=== PATIENT | male | born 1955 | race American Indian/Alaskan Native ===

== ENCOUNTER 2017-06-21 12:40 | Emergency (ER) | payer MEDICARE, OTHER ==
[2017-06-21 12:46] VITALS: BMI 33.2
[2017-06-21 12:50] VITALS: O2SAT 95
--- NOTE | 2017-06-21 13:22 | C.PDOC ---
History Of Present Illness 61 y/o male presents to the ED for evaluation of lower abdominal pain for the past 1 month, worse in the last week. Patient states his pain worsens when he urinates, and in the morning upon waking up. Pt reports having previous surgery for inguinal hernia, but does not recall surgeon's name. He denies fever/chills, nausea, vomiting, diarrhea, changes in bowel habits, dysuria/ hematuria, flank pain, or testicular pain. Time Seen by Provider: 06/21/17 13:03 Chief Complaint (Nursing): Abdominal Pain History Per: Patient History/Exam Limitations: no limitations Onset/Duration Of Symptoms: Days (1 week) Current Symptoms Are (Timing): Still Present Severity: Mild Radiation Of Pain To:: None Quality Of Discomfort: "Pain" Associated Symptoms: denies: Fever, Chills, Nausea, Vomiting, Diarrhea, Loss Of Appetite, Back Pain, Chest Pain, Constipation, Urinary Symptoms Exacerbating Factors: None Alleviating Factors: None Additional History Per: Patient Past Medical History Reviewed: Historical Data, Nursing Documentation, Vital Signs Vital Signs: Last Vital Signs Temp 97.9 F 06/21/17 17:03 Pulse 83 06/21/17 17:03 Resp 20 06/21/17 17:03 BP 138/86 06/21/17 17:03 Pulse Ox 95 06/21/17 17:03 - Medical History PMH: COPD, HTN, Seizures (LAST SEIZURE AGE 6) Surgical History: Endoscopy - [facility] Procedures LAPAROSCOPIC INCISIONAL HERNIA REPAIR W GRAFT OR PROSTHESIS (03/28/15) LAPAROSCOPIC REPAIR OF INGUINAL HERNIA W GRAFT OR PROST, NOS (03/28/15) Family History: States: No Known Family Hx - Social History Hx Alcohol Use: No Hx Substance Use: No Review Of Systems Except As Marked, All Systems Reviewed And Found Negative. Constitutional: Negative for: Fever, Chills Cardiovascular: Negative for: Chest Pain, Palpitations Respiratory: Negative for: Cough, Shortness of Breath Gastrointestinal: Positive for: Abdominal Pain (lower). Negative for: Nausea, Vomiting, Diarrhea, Constipation Genitourinary: Negative for: Dysuria, Hematuria Musculoskeletal: Negative for: Back Pain Physical Exam - Physical Exam Appears: Well, Non-toxic, No Acute Distress Skin: Normal Color, Warm, Dry Eye(s): bilateral: Normal Inspection Oral Mucosa: Moist Neck: Supple Cardiovascular: Rhythm Regular Respiratory: Normal Breath Sounds, No Rales, No Rhonchi, No Wheezing Gastrointestinal/Abdominal: Bowel Sounds, Soft, Tenderness (epigastric, suprapubic TTP, (-) McBurney's, (-) Gould's), No Guarding, No Rebound, No Hernia (no palpable hernias (abdominal/inguinal/testicular)) Back: Normal Inspection, No CVA Tenderness Neurological/Psych: Oriented x3 ED Course And Treatment - Laboratory Results Result Diagrams: 06/21/17 13:42 06/21/17 13:42 O2 Sat by Pulse Oximetry: 95 (RA) Pulse Ox Interpretation: Normal - CT Scan/US Abd & pelvis CT Other Rad Studies (CT/US): Read By Radiologist, Radiology Report Reviewed CT/US Interpretation: PROCEDURE: CT Abdomen and Pelvis with contrast. HISTORY : SUPRAPUBIC, LLQ/RLQ PAIN. COMPARISON: None available. TECHNIQUE: Contrast dose: 100 cc Visipaque 320. Radiation dose: Total exam DLP = 1223.99 mGy-cm. This CT exam was performed using one or more of the following dose reduction techniques: Automated exposure control, adjustment of the mA and/or kV according to patient size, and/or use of iterative reconstruction technique. FINDINGS: LOWER THORAX: Partially imaged bronchiectasis, posterior right upper lobe. No visible consolidation, pleural effusion, or pneumothorax. Small hiatal hernia/ distal esophageal wall thickening. LIVER: Unremarkable. GALLBLADDER AND BILE DUCTS: Cholelithiasis. PANCREAS: Unremarkable. SPLEEN: Unremarkable. ADRENALS: Unremarkable. KIDNEYS AND URETERS: The kidneys enhance symmetrically. No hydronephrosis or obstructing calculus identified. VASCULATURE: No aortic aneurysm. BOWEL: Stomach is nondistended. Lack of oral contrast limits evaluation for bowel pathology. Bowel loops appear within normal limits of caliber without evidence of obstruction. APPENDIX: The appendix appears within normal limits of caliber. No secondary signs of acute appendicitis. PERITONEUM: No significant free fluid. No definite free air. LYMPH NODES: No bulky adenopathy identified. BLADDER: Urinary bladder wall thickening. REPRODUCTIVE: Unremarkable. BONES: Degenerative changes. OTHER FINDINGS: None. IMPRESSION: Urinary bladder wall thickening may be exaggerated by under distension. Recommend correlation with urinalysis. Cholelithiasis. Additional findings as above. Progress Note: Plan: Blood work, urinalysis, CT scan abd/pelvis ordered and reviewed. Patient given IV NS bolus, IV toradol. Reevaluation Time: 16:45 Reassessment Condition: Improved (On reassessment, patient is resting comfortably and states he feels better. He would like to be discharged home, and is requesting Tramadol which "has worked for the pain before". Blood work, UA, CT scan unremarkable. Patient instructed to follow up with PMD/clinic in 1- 2 days, and he understands he should return to ED if symptoms worsen.) Disposition Counseled Patient/Family Regarding: Studies Performed, Diagnosis, Need For Followup, Rx Given - Disposition Disposition: HOME/ ROUTINE Disposition Time: 16:45 Condition: STABLE Additional Instructions: FOLLOW UP WITH YOUR DOCTOR IN 1-2 DAYS USE MEDICATION NEEDED RETURN TO EMERGENCY ROOM IF SYMPTOMS WORSEN Prescriptions: traMADol [Ultram] 50 mg PO BID PRN #12 tab PRN Reason: pain Instructions: Abdominal Pain (ED) Forms: [employer] (Taiwanese) Print Language: GRENADIAN - POA Present On Arrival: None - Clinical Impression Clinical Impression: Abdominal pain - Scribe Statement The provider has reviewed the documentation as recorded by the Thomasibangelique Kendrick All medical record entries made by the Thomasibangelique were at my direction and personally dictated by me. I have reviewed the chart and agree that the record accurately reflects my personal performance of the history, physical exam, medical decision making, and the department course for this patient. I have also personally directed, reviewed, and agree with the discharge instructions and disposition.
[2017-06-21] MEDS ORDERED: Sodium Chloride 0.9% 500 ML IV ONE ×2 (13:29→14:11)
[2017-06-21 13:57] LABS: BASO % 0.6 % (0.0-2.0); EOS # 0.1 K/uL (0.0-0.7); EOS % 1.4 % (0.0-4.0); HEMATOCRIT 41.5 % (35.0-51.0); LYMPH # 2.2 K/uL (1.0-4.3); LYMPH % 37.9 % (20.0-40.0); MEAN CELL VOLUME 88.2 fL (80.0-94.0); MEAN CORPUSCULAR HEMOGLOBIN 29.1 pg (27.0-31.0); MEAN CORPUSCULAR HGB CONC 32.9 g/dL (33.0-37.0); MEAN PLATELET VOLUME 7.1 fL (7.2-11.7); MONO # 0.6 K/uL (0.0-0.8); MONO % 10.8 % (0.0-10.0); NRBC % 0.1 % (0.0-2.0); RED CELL DISTRIBUTION WIDTH 14.3 % (11.5-14.5); WHITE BLOOD COUNT 5.8 K/uL (4.8-10.8)
[2017-06-21 14:03] LABS: RBC URINE < 1 /hpf (0-3); URINE BILIRUBIN NEGATIVE (NEGATIVE); URINE BLOOD NEGATIVE (NEGATIVE); URINE COLOR Yellow (YELLOW); URINE GLUCOSE (UA) 1+ mg/dL (Normal); URINE KETONE NEGATIVE (NEGATIVE); URINE LEUKOCYTE ESTERASE NEG Leu/uL (Negative); URINE PROTEIN NEGATIVE (NEGATIVE); URINE UROBILINOGEN NORMAL mg/dL (0.2-1.0); WBC URINE 1 /hpf (0-5)
[2017-06-21 14:09] LABS: CHLORIDE 103 mmol/L (98-107)
[2017-06-21 14:10] LABS: POTASSIUM 3.7 mmol/L (3.6-5.2); SODIUM 138 mmol/L (132-148)
[2017-06-21 14:12] LABS: BILIRUBIN,TOTAL 0.5 mg/dL (0.2-1.3); CARBON DIOXIDE 24 mmol/L (22-30); GFR AFRICAN-AMERICAN > 60
[2017-06-21 14:13] LABS: ALB/GLOB RATIO 1.1 (1.0-2.1); ALKALINE PHOSPHATASE 60 U/L (38-126); ALT/SGPT 22 U/L (21-72); AST/SGOT 18 U/L (17-59); BLOOD UREA NITROGEN 11 mg/dL (9-20); CALCIUM 9.1 mg/dl (8.6-10.4); GLUCOSE,RANDOM 87 mg/dL (75-110); TOTAL PROTEIN 7.2 g/dL (6.3-8.3)
[2017-06-21] MEDS ORDERED: Iodixanol 320 MG/ML 100 ML BOTTLE IV ONE (15:28)
--- NOTE | 2017-06-21 16:31 | CT ---
PROCEDURE: CT Abdomen and Pelvis with contrast HISTORY: SUPRAPUBIC, LLQ/RLQ PAIN COMPARISON: None available. TECHNIQUE: Contrast dose: 100 cc Visipaque 320 Radiation dose: Total exam DLP = 1223.99 mGy-cm. This CT exam was performed using one or more of the following dose reduction techniques: Automated exposure control, adjustment of the mA and/or kV according to patient size, and/or use of iterative reconstruction technique. FINDINGS: LOWER THORAX: Partially imaged bronchiectasis, posterior right upper lobe. No visible consolidation, pleural effusion, or pneumothorax. Small hiatal hernia/ distal esophageal wall thickening. LIVER: Unremarkable. GALLBLADDER AND BILE DUCTS: Cholelithiasis. PANCREAS: Unremarkable. SPLEEN: Unremarkable. ADRENALS: Unremarkable. KIDNEYS AND URETERS: The kidneys enhance symmetrically. No hydronephrosis or obstructing calculus identified. VASCULATURE: No aortic aneurysm. BOWEL: Stomach is nondistended. Lack of oral contrast limits evaluation for bowel pathology. Bowel loops appear within normal limits of caliber without evidence of obstruction. APPENDIX: The appendix appears within normal limits of caliber. No secondary signs of acute appendicitis. PERITONEUM: No significant free fluid. No definite free air. LYMPH NODES: No bulky adenopathy identified. BLADDER: Urinary bladder wall thickening. REPRODUCTIVE: Unremarkable. BONES: Degenerative changes. OTHER FINDINGS: None. IMPRESSION: Urinary bladder wall thickening may be exaggerated by under distension. Recommend correlation with urinalysis. Cholelithiasis. Additional findings as above.
[2017-06-21 17:04] VITALS: BP 138/86; PULSE 83; RESP 20; TEMP 97.9
== END 2017-06-21 17:05 | disposition home or self-care (01) ==
LOC: C.ER 12:40
DX: R10.13 Epigastric pain (principal)
CPT/HCPCS: 74177; 80053; 81001; 83690; 85025; 87086; 96374; 99285; J1885; J7040; Q9967